=== PATIENT | female | born 1965 | race African-American/Black ===

== ENCOUNTER 2017-01-03 04:16 | Emergency (ER) | payer MEDICARE, MEDICAID ==
[~2017-01-03] VITALS: Ht 177.8 cm; Wt 150.0 kg
[~2017-01-03 04:16] MED LIST: INSULIN; LISINOPRIL
[2017-01-03 06:42] LABS: CLARITY URINE CLOUDY (CLEAR); COLOR URINE YELLOW (YELLOW); GLUCOSE URINE 3+ (NEGATIVE); KETONES URINE NEGATIVE (NEGATIVE); LEUKOCYTE ESTERASE URINE NEGATIVE (NEGATIVE); NITRITE URINE NEGATIVE (NEGATIVE); OCCULT BLOOD URINE TRACE (NEGATIVE); PROTEIN URINE NEGATIVE (NEGATIVE); SPECIFIC GRAVITY URINE 1.042 (1.005-1.030)
[2017-01-03] MEDS ORDERED: ONDANSETRON 4MG ODT PO ONE (06:45)
[2017-01-03] MEDS ORDERED: KETOROLAC 60MG/2ML VIAL IM ONE (06:45)
[2017-01-03 06:54] VITALS: BP 164/82
[2017-01-03 06:56] LABS: BASOPHILS % 1.2 % (0.0-2.0); HEMATOCRIT. 40.4 % (36.0-48.0); HEMOGLOBIN. 13.5 g/dL (12.0-16.0); MEAN CORPUSCULAR HEMOGLOBIN 28.2 pg (28.0-32.0); MEAN CORPUSCULAR HGB CONC 33.4 g/dL (31.0-37.0); MEAN CORPUSCULAR VOLUME 84.5 fL (81.0-99.0); MEAN PLATELET VOLUME 7.7 fl (7.4-10.4); MONOCYTES % 8.3 % (2.0-8.0); NEUTROPHILS % 65.5 % (40.0-76.0); PLATELET 226 x1000/uL (130-400); RED BLOOD CELL COUNT 4.78 mill/uL (4.2-5.4); RED CELL DISTRIBUTION WIDTH 13.8 % (11.6-14.6); WHITE BLOOD COUNT 7.6 x1000/uL (4.5-11.0)
[2017-01-03 07:01] LABS: BACTERIA URINE 1+; RBC URINE 0-2 /hpf (0-2); SQUAMOUS EPITHELIAL CELL URINE FEW /lpf (RARE/1+); WBC URINE 0-2 /hpf (0-2)
[2017-01-03 07:05] LABS: PROTHROMBIN TIME 10.3 sec
[2017-01-03 07:06] LABS: ANION GAP 13; CALCIUM 8.9 mg/dL (8.5-10.1); CARBON DIOXIDE 30 mEq/L (21-32); CHLORIDE 97 mEq/L (98-107); INDEX HEMOLYSI 1 (1-3); INDEX ICTERIC 1 (1-4); INDEX LIPEMIC 1 (1-3); UREA NITROGEN BLOOD 9 mg/dL (7-21); eGFR > 60 mL/min (>60)
[2017-01-03 07:10] LABS: HCG SCREEN NEGATIVE
[2017-01-03] MEDS ORDERED: FLUCONAZOLE 100MG TABLET PO ONE (07:45)
[2017-01-03] MEDS ORDERED: FLUCONAZOLE 150MG TABLET PO ONE (08:15)
[2017-01-03 11:36] LABS: *AMPHETAMINES SCREEN URINE NEGATIVE (NEGATIVE); *BARBITURATES SCREEN URINE NEGATIVE (NEGATIVE); *BENZODIAZEPINES SCREEN URINE NEGATIVE (NEGATIVE); *COCAINE SCREEN URINE NEGATIVE (NEGATIVE); CANNABINOID URINE SCREEN NEGATIVE (NEGATIVE); ECSTASY MDMA SCREEN URINE NEGATIVE (NEGATIVE); METHADONE URINE SCREEN NEGATIVE (NEGATIVE); OPIATES URINE SCREEN NEGATIVE (NEGATIVE); PHENCYCLIDINE URINE SCREEN NEGATIVE (NEGATIVE)
[2017-01-05 04:49] LABS: CHLAMYDIA TRACHOMATIS NAA Negative (Negative); NEISSERIA GONORRHOEAE NAA Negative (Negative)
== END 2017-01-03 08:42 | disposition home or self-care (01) ==
LOC: ER 04:16
DX: K64.9 Unspecified hemorrhoids (principal); E66.9 Obesity, unspecified; E11.9 Type 2 diabetes mellitus without complications; B37.3 Candidiasis of vulva and vagina; J45.909 Unspecified asthma, uncomplicated; I50.9 Heart failure, unspecified; N94.10 Unspecified dyspareunia; Z79.4 Long term (current) use of insulin
CPT/HCPCS: 36415; 80048; 80305; 81001; 84703; 85025; 85610; 85730; 87210; 87491; 87591; 96372; 99284; J1885; Q0162

== ENCOUNTER 2017-05-15 19:05 | Emergency (ER) | payer MEDICARE, MEDICAID ==
[~2017-05-15] VITALS: Ht 175.3 cm; Wt 74.0 kg
[2017-05-16] MEDS ORDERED: ACETAMINOPHEN 500MG TABLET PO ONE (00:30)
[2017-05-16] MEDS ORDERED: TRAMADOL 50MG TABLET PO ONE (00:45)
[2017-05-16 00:46] VITALS: BP 139/81
== END 2017-05-16 01:36 | disposition home or self-care (01) ==
LOC: ER 19:05
DX: S46.912A Strain of unspecified muscle, fascia and tendon at shoulder and upper arm level, left arm, initial encounter (principal); I11.0 Hypertensive heart disease with heart failure; I50.9 Heart failure, unspecified; J45.909 Unspecified asthma, uncomplicated; Z79.4 Long term (current) use of insulin; W06.XXXA Fall from bed, initial encounter; Y93.89 Activity, other specified; Y92.89 Other specified places as the place of occurrence of the external cause; Y99.8 Other external cause status
CPT/HCPCS: 99283; A4565

== ENCOUNTER 2017-12-01 07:43 | Emergency (ER) | payer MEDICARE, MEDICAID ==
[~2017-12-01] VITALS: Ht 170.2 cm; Wt 140.0 kg
[2017-12-01] MEDS ORDERED: ONDANSETRON 4MG ODT PO STA (11:06)
[2017-12-01] MEDS ORDERED: ACETAMINOPHEN WITH CODEINE 300/30MG TABLET PO ONE (11:15)
[2017-12-01 11:34] LABS: BASOPHILS % 0.4 % (0.0-2.0); EOSINOPHILS % 0.6 % (0.0-5.0); HEMATOCRIT. 36.5 % (36.0-48.0); HEMOGLOBIN. 12.2 g/dL (12.0-16.0); LYMPHOCYTES % 50.5 % (20.0-50.0); MEAN CORPUSCULAR HEMOGLOBIN 28.4 pg (28.0-32.0); MEAN CORPUSCULAR VOLUME 85.1 fL (81.0-99.0); MEAN PLATELET VOLUME 7.8 fl (7.4-10.4); MONOCYTES % 8.7 % (2.0-8.0); NEUTROPHILS % 39.8 % (40.0-76.0); PLATELET 225 x1000/uL (130-400); RED BLOOD CELL COUNT 4.29 mill/uL (4.2-5.4)
[2017-12-01 11:34] LABS: CLARITY URINE CLEAR (CLEAR); COLOR URINE YELLOW (YELLOW); KETONES URINE NEGATIVE (NEGATIVE); LEUKOCYTE ESTERASE URINE NEGATIVE (NEGATIVE); NITRITE URINE POSITIVE (NEGATIVE); OCCULT BLOOD URINE NEGATIVE (NEGATIVE); PROTEIN URINE 1+ (NEGATIVE); SPECIFIC GRAVITY URINE 1.031 (1.005-1.030); UROBILINOGEN URINE 0.2 E.U./dL (0.2-1.0)
[2017-12-01 11:35] LABS: PROTHROMBIN TIME 10.2 sec (9.4-11.6)
[2017-12-01 11:37] LABS: CHLORIDE 99 mEq/L (98-107)
[2017-12-01] MEDS ORDERED: DIPHENHYDRAMINE 25MG CAPSULE PO ONE (13:45)
[2017-12-01] MEDS ORDERED: METOCLOPRAMIDE HCL 10MG TABLET PO ONE (13:45)
[2017-12-01 15:11] VITALS: BP 134/86
== END 2017-12-01 15:13 | disposition home or self-care (01) ==
LOC: ER 07:43
DX: R51 Headache (principal); N39.0 Urinary tract infection, site not specified; J18.9 Pneumonia, unspecified organism; R73.9 Hyperglycemia, unspecified; J45.909 Unspecified asthma, uncomplicated; I11.0 Hypertensive heart disease with heart failure; I50.9 Heart failure, unspecified; Z79.4 Long term (current) use of insulin; Z98.51 Tubal ligation status
CPT/HCPCS: 36415; 70450; 71045; 80053; 81003; 83880; 84484; 85025; 85610; 87086; 93005; 99285; Q0162; J8597; Q0163